=== PATIENT | female | born 1970 | race Caucasian/White ===

== ENCOUNTER 2018-05-02 20:05 | Emergency (ER) | payer BC ==
--- OUTSIDE RECORDS SUMMARY | 2018-05-02 20:10 | XMS REPORT | Continuity of Care Document ---
:1970 External Reference #:[id number] Author Name MarcoMel suero Care Team Providers Name Role Phone Bess Clark MD Primary Care Physician Unavailable Payers Type Date Identification Numbers Payment Provider Subscriber Effective: Policy Number: [id number] [facility] Jose Daniel Andre 2009 PayID: [id number] [address] [place] [address] Advance Directives Type Date Description Status Comment Other Directive 05/31/2015 Health Care Proxy Current and Verified Problems Date Description Provider Status Onset: 08/07/2010 Pure hypercholesterolemia Nicole Lyons M.D., FACP Active Onset: 03/31/2014 Obstructive sleep apnea syndrome Renuka Tolentino MD Active Onset: 03/31/2014 Peptic reflux disease Renuka Tolentino MD Active Onset: 03/31/2014 Insomnia Renuka Tolentino MD Active Onset: 09/28/2014 Restless legs Renuka Tolentino MD Active Onset: 09/28/2014 Deficiency anemias Renuka Tolentino MD Active Family History Date Family Member(s) Problem(s) Comments General No Current Problems Father Fibromyalgia Migraine, HTN, RLS, IFG Age 76 Mother "Lung Issues" Squamous Cell Cancer, Macular Degeneration Age 76 First Daughter Recovering from eating disorder Age 13 Siblings 3 2 Brothers - one with DM 1 Sister First Brother Alive And Well Second Brother Impaired fasting glucose Obese First Sister Alive And Well Social History Type Date Description Comments Sex Unknown Marital Status 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 She denies currently smoking Smoking Status Reviewed: 04/13/18 Patient has never smoked Patient smokes socially on and off, 1 cigarette every few months. She denies currently smoking Exercise Exercises regularly Type/Frequency Allergies, Adverse Reactions, Alerts Date Description Reaction Status Severity Comments 02/06/2010 Amoxicillin rash Active Moderate 03/10/2013 Cefdinir diarrhea Active 03/31/2014 Ampicillin Active Medications Medication Date Status Form Strength Qnty SIG Indications Ordering Provider Lorazepam 10/06 Active Tablets 0.5mg 15tab take 1/2-1 Z00.00 s tablet by Varn, N.P. mouth as needed for anxiety maximum daily dose=2 Fluticasone 08/27 Active Suspension 50mcg/Act 1bott 2 sprays R51 Luis le each nostril ALESHA Heaton in in the morning Iron 09/28 Active Tablets 325(65Fe) 60tab 2 tab by Renuka /2014 mg s mouth every MD Randa day Relpax 10/06 Active Tablets 20mg 12tab take 1 G43.909 s tablet by Varn, N.P. mouth for migraine headache, may repeat in 2 hours. Fish Oil 11/22 Active Capsules 300mg 1 po qd prn Nicole Eder Lyons, FACP Vit D Active Tablets 1000mg 1 po qd prn Unknown / Azithromycin 09/11 Hx Tablets 250mg 6tabs two tabs day one, one Varn, N.P. - daily till 09/21 Azithromycin 06/21 Hx Tablets 250mg 6tabs 2 tabs by J01.90 Luis mouth every ALESHA Heaton - day x1 day, 06/25 1 tab by /2016 mouth every day x 4 days Nystatin 05/01 Hx Suspension [id number] 16oz 4 B37.0 t/ML milliliters Varn, N.P. - four times a 05/15 day, swi and swallow for 14 days Flovent HFA 05/01 Hx Aerosol 110mcg/Ac 1unit 2 puffs R05 t s twice daily Varn, N.P. - 05/15 Fluconazole 05/01 Hx Tablets 150mg 2tabs one by mouth B37.0 may repeat Varn, N.P. - in 3 days as 12/30 needed /2016 Azithromycin 01/21 Hx Tablets 250mg 6tabs two tabs day one, one Varn, N.P. - daily till 01/31 Ativan 12/28 Hx Tablets 0.5mg 15tab 05/20 to 1 by R05 Clara /2016 s mouth every Varn, N.P. - 6 hours as 10/07 needed for anxiety Azithromycin 08/27 Hx Tablets 250mg 6tabs 2 tabs by J01.90 Luis mouth every [place]ina, [employer] - day x1 day, 09/01 1 tab by mouth every day x 4 days Ranitidine HCL 05/04 Hx Tablets 150mg 60tab take one K21.9 s tablet by Varn, N.P. - mouth twice 12/14 a day needed for reflux Ativan 05/04 Hx Tablets 0.5mg 30tab 05/20 to 1 by N94.3 Clara /2015 s mouth every Varn, N.P. - 6 hours as 12/14 needed for anxiety Azithromycin 02/14 Hx Tablets 250mg 6tabs 2 tabs by R0Hoda Kellogg mouth on day , - 1; 1 tab by Eder 02/24 mouth day on days 2-5 Symbicort 02/14 Hx Aerosol 80-4.5mcg 10.20 inhale two 5 Bess /Act 0gm puffs by Cotton, - mouth twice M.DAlber 05/04 a day /2014 Metaxalone 01/25 Hx Tablets 800mg 30tab take 1 724.5 s tablet at Varn, N.P. - bedtime as 02/08 needed for muscle spasms. Azithromycin 11/23 Hx Tablets 250mg 6tabs two tabs day 461.9 Clara one, one Varn, N.P. - daily till 12/03 Doxycycline 10/17 Hx Tablets 100mg 2tabs 2 tablets by Clara kristina mouth Varn, N.P. - 11/02 Azithromycin 08/19 Hx Tablets 250mg 6tabs 2 tabs by 461.8 Luis mouth every Florina, [employer] - day x1 day, 08/24 1 tab by mouth every day x 4 days Levofloxacin 03/21 Hx Tablets 500mg 7tabs 1 tablt po 466.0 qd Benavidez, - M.D. 03/30 Proair HFA 03/21 Hx Aerosol 108(90Bas QS 2 puffs by 466.0 e) mouth every Benavidez, - mcg/Act 64 hours as M.D. 03/30 needed Lorazepam 03/02 Hx Tablets 0.5mg 30tab takes 05/22 po 240.9 s daily Varn, N.P. - 10/17 Imipramine HCL 03/02 Hx Tablets 50mg one po daily 311 Varn, N.P. - 03/20 Azithromycin 07/28 Hx Tablets 250mg 6tabs two tabs day one, one Serena, - daily till M.D., FACP 08/10 Relpax 03/25 Hx Tablets 40mg 2tabs 1 by mouth 784.0 Nicole every day as Serena, - needed M.D., FACP 07/22 Fluticasone 03/25 Hx Suspension 50mcg/Act 1bott 1 spray each 784.0 Luis le nostril in [facility], [employer] - in the 08/26 Azithromycin 03/10 Hx Tablets 250mg 6tabs two tabs day 784.0 Joselo E. one, one Karina, - daily till M.D. 03/25 Cefdinir 03/03 Hx Capsules 300mg 20cap take one tab 382.9 Ashlie s twice daily Rafa - for 10 days tson, N.P. 03/10 Norgestimate/E 08/28 Hx Tablets 0.18/0.21 1tabs as dir 240.9 Nicole thinyl 5/0.25 Serena, Estradiol - mg-35 mcg M.D., FACP 09/17 Omeprazole 07/[address] 20mg 90cap 1 by mouth s every day as Varn, N.P. - needed 03/18 Azithromycin 03/04 Hx Tablets 250mg 6tabs two tabs day 461.9 one, one Varn, N.P. - daily till 03/14 Azithromycin 07/30 Hx Tablets 250mg 6tabs two tabs day 461.9 one, one Serena, - daily till M.D., FACP 08/04 Omeprazole 05/[address] 20mg 60cap 1 tablet bid 530.81 s as needed Serena, - for stomach M.D., FACP 07/30 Azithromycin 04/23 Hx Tablets 250mg 6tabs two tabs day 461.9 one, one Serena, - daily till M.D., FACP 05/15 Niferex 150 MG 03/19 Hx Tablets 90tab 1 po qd s Kingston Lyons M.D., [facility] 07/30 Centrum Silver 11/22 Hx Tablets 1 po qd Nicole Ultra Women Kingston Lyons M.D., FACP 05/15 Calcium 500 11/22 Hx Tablets 500mg 1 po qd Kingston Lyons M.D., FACP 03/11 Acidophilus 11/22 Hx Capsules 1 po qd prn Kingston Lyons M.D., FACP 03/18 Cephalexin 08/07 Hx Capsules 250mg 20cap take 1 four s times a day Kingston Lyons M.D., FACP 11/06 Fluticasone 05/21 Hx Suspension 50mcg/Act 1bott 1 spray each Nicole le nostril in Serena, - am Paul.Radha, FACP 07/23 Ferocon 04/19 Hx Capsules Nicole Kingston Lyons M.D., FACP 04/19 Ferrogels 04/19 Hx Capsules 460-60-0. 1 cap by Nicole Forte 01-1mg mouth every Serena, - day M.DAlber, FACP 08/07 Zithromax 02/06 Hx Z Pack 1unit use as Nicole Kingston Freitas M.D., FACP 02/11 Ativan 00/00 Hx Tablets 0.5mg 2tabs 1/4 tablet Unknown /0000 daily - 03/04 Pantoprazole 00/[address] 40mg 90tab 1 po qd Unknown Sodium /0000 s - 05/15 Omeprazole 00/[address] 20mg 90cap 1 po qd Unknown /0000 s - 07/30 Lorazepam 00/00 Hx Tablets 0.5mg 30tab take 1 Unknown /0000 s tablet as - needed for 03/02 every 8 hours Vitamin B 00/00 Hx Tablets 30tab 1 po qd Unknown Complex /0000 s - 07/22 Immunizations CPT Code Status Date Vaccine Reaction Lot # [id number] Given 03/10/2018 Influenza Virus Vaccine, Quadrivalent, Split, Preservative Free 09314 Given 03/26/2017 Influenza Virus Vaccine, No immediate [id number] Quadrivalent, Split, reaction...jh Preservative Free 09131 Given 03/06/2016 Influenza Virus Vaccine, [id number] Quadrivalent, Split Virus, [place] Use 92767 Given 05/04/2015 Influenza Virus Vaccine, [id number] Quadrivalent, Split, Preservative Free 41202 Given 03/02/2014 Influenza Virus Vaccine, [id number] Quadrivalent, Split, Preservative Free 02729 Given 10/06/2013 Tdap - [id number] Tetanus/Diptheria/Acellula r Pertussis 49114 Given 03/25/2013 Flu Vaccine Split Virus [id number] Preservative Free For Indiv 3Yr Older 34681 Given 03/08/2011 Influenza Virus 3Yrs & [id number] Over 71883 Given 04/19/2010 Influenza Virus 3Yrs & Over 87169 Given 02/20/2009 Influenza Virus 3Yrs & Over 33943 Given 05/23/2006 Influenza Virus 3Yrs & Over 43646 Given 05/23/2006 Influenza Virus 3Yrs & Over 80953 Given 05/02/2005 Tetanus And Diptheria (Td) For Adult Use Preservative Free Vital Signs Date Vital Result Comment 04/13/2018 8:29am Heart Rate 78 /min BP Systolic Sitting 102 mmHg BP Diastolic Sitting 76 mmHg Respiratory Rate 16 /min Body Temperature 97.2 F 03/19/2018 8:36am Heart Rate 84 /min BP Systolic Sitting 102 mmHg BP Diastolic Sitting 68 mmHg Respiratory Rate 18 /min Body Temperature 98.1 F 03/18/2018 1:46pm Height 63.25 inches 5'3.25" Weight 168.00 lb Heart Rate 71 /min BP Systolic 116 mmHg BP Diastolic 70 mmHg Body Temperature 98.7 F O2 % BldC Oximetry 97 % BMI (Body Mass Index) 29.5 kg/m2 10/06/2017 1:35pm Height 63.25 inches 5'3.25" Weight 163.00 lb Heart Rate 72 /min BP Systolic 110 mmHg BP Diastolic 68 mmHg Body Temperature 98.4 F O2 % BldC Oximetry 97 % BMI (Body Mass Index) 28.6 kg/m2 09/09/2017 9:34am Weight 174.00 lb Heart Rate 94 /min BP Systolic 100 mmHg BP Diastolic 64 mmHg Body Temperature 98.0 F O2 % BldC Oximetry 98 % 05/27/2017 2:14pm Height 63 inches 5'3" Weight 170.00 lb Heart Rate 68 /min BP Systolic Sitting 116 mmHg BP Diastolic Sitting 72 mmHg Respiratory Rate 14 /min O2 % BldC Oximetry 98 % BMI (Body Mass Index) 30.1 kg/m2 Neck Circumference in inches 15.25 03/26/2017 8:42am Weight 170.00 lb Heart Rate 78 /min BP Systolic 110 mmHg BP Diastolic 66 mmHg Body Temperature 98.0 F O2 % BldC Oximetry 97 % 12/30/2016 3:57pm Weight 173.50 lb Heart Rate 72 /min BP Systolic 100 mmHg BP Diastolic 64 mmHg Body Temperature 99.3 F O2 % BldC Oximetry 98 % 10/11/2016 8:06am Height 63 inches 5'3" Weight 160.00 lb Heart Rate 78 /min BP Systolic 99 mmHg BP Diastolic 62 mmHg Respiratory Rate 16 /min BMI (Body Mass Index) 28.3 kg/m2 06/21/2016 11:37am Weight 157.00 lb Heart Rate 92 /min BP Systolic 118 mmHg BP Diastolic 60 mmHg Body Temperature 99.7 F 3 advil 1 hour ago O2 % BldC Oximetry 98 % 06/18/2016 9:08am Weight 160.00 lb with shoes Heart Rate 90 /min BP Systolic 104 mmHg BP Diastolic 70 mmHg Body Temperature 98.1 F O2 % BldC Oximetry 98 % 05/01/2016 11:11am Weight 161.00 lb Heart Rate 68 /min BP Systolic Sitting 122 mmHg BP Diastolic Sitting 76 mmHg Respiratory Rate 15 /min Body Temperature 97.7 F O2 % BldC Oximetry 98 % 03/06/2016 8:46am Height 63 inches 5'3" Weight 160.00 lb Heart Rate 67 /min BP Systolic 112 mmHg BP Diastolic 82 mmHg Respiratory Rate 14 /min O2 % BldC Oximetry 97 % BMI (Body Mass Index) 28.3 kg/m2 12/29/2015 8:45am Weight 159.00 lb Heart Rate 82 /min BP Systolic Sitting 110 mmHg BP Diastolic Sitting 72 mmHg O2 % BldC Oximetry 97 % 12/15/2015 10:01am Weight 156.00 lb with shoes Heart Rate 82 /min BP Systolic Sitting 100 mmHg BP Diastolic Sitting 62 mmHg Body Temperature 97.9 F O2 % BldC Oximetry 98 % 08/28/2015 1:45pm Height 63 inches 5'3" Weight 159.00 lb Heart Rate 76 /min BP Systolic Sitting 112 mmHg BP Diastolic Sitting 60 mmHg Respiratory Rate 15 /min Body Temperature 98.6 F O2 % BldC Oximetry 98 % BMI (Body Mass Index) 28.2 kg/m2 05/04/2015 9:52am Height 63 inches 5'3" Weight 161.00 lb Heart Rate 73 /min BP Systolic Sitting 107 mmHg BP Diastolic Sitting 58 mmHg Body Temperature 98.3 F O2 % BldC Oximetry 97 % BMI (Body Mass Index) 28.5 kg/m2 02/14/2015 8:50am Weight 161.00 lb Heart Rate 89 /min BP Systolic Sitting 120 mmHg BP Diastolic Sitting 71 mmHg Body Temperature 97.9 F O2 % BldC Oximetry 95 % Peak Flow Meter 300,250 01/25/2015 10:21am Weight 162.50 lb Heart Rate 70 /min BP Systolic Sitting 97 mmHg BP Diastolic Sitting 64 mmHg Body Temperature 98.1 F 11/23/2014 2:22pm Weight 164.00 lb Heart Rate 73 /min BP Systolic Sitting 109 mmHg BP Diastolic Sitting 63 mmHg Body Temperature 97.4 F 11/04/2014 2:44pm Weight 164.75 lb Heart Rate 67 /min BP Systolic Sitting 105 mmHg BP Diastolic Sitting 71 mmHg Body Temperature 97.9 F 09/28/2014 8:38am Height 63 inches 5'3" Weight 160.00 lb Heart Rate 74 /min BP Systolic Sitting 110 mmHg BP Diastolic Sitting 72 mmHg O2 % BldC Oximetry 98 % BMI (Body Mass Index) 28.3 kg/m2 Neck Circumference in inches 15 08/19/2014 1:30pm Height 63 inches 5'3" Weight 161.00 lb Heart Rate 79 /min BP Systolic 96 mmHg BP Diastolic 65 mmHg Body Temperature 97.7 F O2 % BldC Oximetry 97 % BMI (Body Mass Index) 28.5 kg/m2 03/31/2014 9:12am Height 63 inches 5'3" Weight 160.00 lb Heart Rate 82 /min BP Systolic Sitting 106 mmHg BP Diastolic Sitting 64 mmHg Respiratory Rate 16 /min O2 % BldC Oximetry 98 % BMI (Body Mass Index) 28.3 kg/m2 03/21/2014 1:42pm Height 63 inches 5'3" Weight 162.50 lb Heart Rate 49 /min BP Systolic Sitting 100 mmHg BP Diastolic Sitting 68 mmHg Body Temperature 98.5 F BMI (Body Mass Index) 28.8 kg/m2 03/02/2014 9:05am Height 63 inches 5'3" Weight 162.00 lb Heart Rate 76 /min BP Systolic Sitting 120 mmHg BP Diastolic Sitting 60 mmHg BMI (Body Mass Index) 28.7 kg/m2 10/06/2013 9:25am Height 63 inches 5'3" Weight 159.50 lb Heart Rate 76 /min BP Systolic Sitting 110 mmHg BP Diastolic Sitting 68 mmHg BMI (Body Mass Index) 28.3 kg/m2 08/10/2013 11:48am Weight 160.50 lb Heart Rate 68 /min BP Systolic 120 mmHg BP Diastolic 76 mmHg Respiratory Rate 16 /min Body Temperature 98.4 F 07/22/2013 9:02am Weight 161.50 lb Heart Rate 80 /min BP Systolic 110 mmHg BP Diastolic 74 mmHg Respiratory Rate 16 /min Body Temperature 98.4 F 03/25/2013 11:51am Weight 157.00 lb Heart Rate 78 /min BP Systolic Sitting 122 mmHg BP Diastolic Sitting 76 mmHg 03/10/2013 1:53pm Height 63.5 inches 5'3.50" Weight 155.75 lb Heart Rate 76 /min BP Systolic Sitting 112 mmHg BP Diastolic Sitting 80 mmHg Body Temperature 98.5 F BMI (Body Mass Index) 27.2 kg/m2 03/03/2013 9:50am Weight 156.50 lb Heart Rate 82 /min BP Systolic Sitting 118 mmHg BP Diastolic Sitting 78 mmHg O2 % BldC Oximetry 97 % 08/28/2012 9:07am Height 63.25 inches 5'3.25" Weight 151.00 lb Heart Rate 84 /min BP Systolic Sitting 110 mmHg BP Diastolic Sitting 68 mmHg BMI (Body Mass Index) 26.5 kg/m2 07/23/2012 11:36am Height 62 inches 5'2" Weight 153.00 lb Heart Rate 76 /min BP Systolic Sitting 110 mmHg BP Diastolic Sitting 70 mmHg BMI (Body Mass Index) 28.0 kg/m2 03/04/2012 10:47am Height 62 inches 5'2" Weight 149.75 lb Heart Rate 64 /min BP Systolic Sitting 110 mmHg BP Diastolic Sitting 70 mmHg Body Temperature 98.4 F BMI (Body Mass Index) 27.4 kg/m2 07/31/2011 9:45am Height 62 inches 5'2" Weight 151.75 lb Heart Rate 72 /min BP Systolic Sitting 90 mmHg BP Diastolic Sitting 60 mmHg Body Temperature 97.5 F BMI (Body Mass Index) 27.8 kg/m2 05/15/2011 4:19pm Height 62 inches 5'2" Weight 155.00 lb Heart Rate 76 /min BP Systolic Sitting 122 mmHg BP Diastolic Sitting 78 mmHg BMI (Body Mass Index) 28.3 kg/m2 04/23/2011 1:49pm Height 62 inches 5'2" Weight 154.00 lb Heart Rate 72 /min BP Systolic Sitting 100 mmHg BP Diastolic Sitting 64 mmHg Body Temperature 98.7 F BMI (Body Mass Index) 28.2 kg/m2 03/11/2011 11:42am Height 62 inches 5'2" Weight 152.00 lb Heart Rate 68 /min BP Systolic Sitting 112 mmHg l BP Diastolic Sitting 74 mmHg l BMI (Body Mass Index) 27.8 kg/m2 11/22/2010 10:12am Height 62 inches 5'2" Weight 152.00 lb Heart Rate 64 /min BP Systolic Sitting 110 mmHg BP Diastolic Sitting 70 mmHg BMI (Body Mass Index) 27.8 kg/m2 11/06/2010 3:06pm Height 62 inches 5'2" Weight 151.00 lb Heart Rate 78 /min BP Systolic Sitting 98 mmHg BP Diastolic Sitting 74 mmHg BMI (Body Mass Index) 27.6 kg/m2 11/06/2010 3:01pm Height 62 inches 5'2" Weight 151.00 lb BMI (Body Mass Index) 27.6 kg/m2 08/07/2010 9:26am Weight 153.00 lb Heart Rate 72 /min BP Systolic 102 mmHg BP Diastolic 70 mmHg Body Temperature 99.0 F 04/19/2010 12:02pm Weight 152.50 lb Heart Rate 80 /min BP Systolic 110 mmHg BP Diastolic 80 mmHg 02/06/2010 10:06am Weight 151.12 lb Heart Rate 72 /min BP Systolic 110 mmHg BP Diastolic 70 mmHg Results Test Date Facility Test Result H/L Range Note Lipid Profile 10/03/2017 [facility] Triglycerides 76 mg/dL 1 (Trig/Chol/HDL) [address] [place] [address] [phone] Cholesterol 204 mg/dL 2 HDL Cholesterol 51.5 mg/dL 3 LDL Cholesterol 137 mg/dL 4 Comp Metabolic Panel 10/03/2017 [facility] Sodium 141 mmol/L N 139-[address] [place] [address] [phone] Potassium 3.9 mmol/L N 3.5-5.0 Chloride 107 mmol/L N 101-111 Co2 Carbon Dioxide 29 mmol/L N 22-32 Anion Gap 5 mmol/L N 2-11 Glucose 88 mg/dL N 70-100 Blood Urea Nitrogen 9 mg/dL N 6-24 Creatinine 0.68 mg/dL N 0.51-0.95 BUN/Creatinine Ratio 13.2 N 8-20 Calcium 9.3 mg/dL N 8.6-10.3 Total Protein 6.5 g/dL N 6.4-8.9 Albumin 4.3 g/dL N 3.2-5.2 Globulin 2.2 g/dL N 2-4 Albumin/Globulin Ratio 2.0 N 1-3 Total Bilirubin 0.60 mg/dL N 0.2-1.0 Alkaline Phosphatase 56 U/L N 34-104 Alt 15 U/L N 7-52 Ast 17 U/L N 13-39 Egfr Non- 92.3 >60 Egfr 118.8 >60 5 CBC Auto Diff 10/03/2017 [facility] White Blood 3.9 10^3/uL N 3.5-10.[address] [place] [address] [phone] Red Blood Count 3.98 10^6/uL Low 4.0-5.4 Hemoglobin 13.2 g/dL N 12.0-16.0 Hematocrit 38 % N 35-47 Mean Corpuscular Volume 95 fL N 80-97 Mean Corpuscular Hemoglobin 33 pg High 27-31 Mean Corpuscular HGB Conc 35 g/dL N 31-36 Red Cell Distribution Width 13 % N 10.5-15 Platelet Count 230 10^3/uL N 150-450 Mean Platelet Volume 6.8 um3 Low 7.4-10.4 Abs Neutrophils 2.2 10^3/uL N 1.5-7.7 Abs Lymphocytes 1.3 10^3/uL N 1.0-4.8 Abs Monocytes 0.3 10^3/uL N 0-0.8 Abs Eosinophils 0.1 10^3/uL N 0-0.6 Abs Basophils 0 10^3/uL N 0-0.2 Abs Nucleated RBC 0 10^3/uL Granulocyte % 56.2 % N 38-83 Lymphocyte % 32.7 % N 25-47 Monocyte % 7.7 % High 0-7 Eosinophil % 3.0 % N 0-6 Basophil % 0.4 % N 0-2 Nucleated Red Blood Cells % 0.1 Laboratory test 10/03/2017 [facility] Ferritin 45.7 ng/mL N 11 -[address] [place], [place] [id number] [phone] Laboratory test 10/03/2017 [facility] TSH (Thyroid 1.05 N 0.34 -5.[address] Stim Horm) mcIU/mL [place], [place] [id number] [phone] Free T4 (Free Thyroxine) 0.74 ng/dL N 0.61-1.12 Insulin Level 4.0 mcIU/mL N 2.0-16.0 Glucose Tolerance 10/03/2017 [facility] Glucose (SEE NOTE) [address] [place] [address] 2HR [phone] Laboratory test 06/05/2017 [facility] Cytology SEE RESULT [address] [employer] [place] [address] [phone] Laboratory test 03/26/2017 [facility] TSH (Thyroid 1.12 mcIU/mL N 0.34-[address] Stim Horm) .60 [place] [address] [phone] Thyroperoxidase AB 0.73 IU/mL N <9 Free T4 (Free Thyroxine) 0.77 ng/dL N 0.61-1.12 T3 Free 3.60 pg/mL N 2.5-3.9 Laboratory test 02/14/2017 [facility] Lyme Disease Negative N Negative [address] [place] [address] [phone] Laboratory test 12/30/2016 [facility] TSH (Thyroid 1.06 mcIU/mL N 0.34-5.[address] Stim [place]orm) [place] [address] [phone] CBC Auto Diff 12/30/2016 [facility] White Blood 5.6 10^3/uL N 3.5-10.[address] [place] [address] [phone] Red Blood Count 4.17 10^6/uL N 4.0-5.4 Hemoglobin 13.5 g/dL N 12.0-16.0 Hematocrit 40 % N 35-47 Mean Corpuscular Volume 96 fL N 80-97 Mean Corpuscular Hemoglobin 32 pg High 27-31 Mean Corpuscular HGB Conc 34 g/dL N 31-36 Red Cell Distribution Width 13 % N 10.5-15 Platelet Count 300 10^3/uL N 150-450 Mean Platelet Volume 7 um3 Low 7.4-10.4 Abs Neutrophils 3.3 10^3/uL N 1.5-7.7 Abs Lymphocytes 1.7 10^3/uL N 1.0-4.8 Abs Monocytes 0.4 10^3/uL N 0-0.8 Abs Eosinophils 0.1 10^3/uL N 0-0.6 Abs Basophils 0 10^3/uL N 0-0.2 Abs Nucleated RBC 0 10^3/uL N Granulocyte % 58.7 % N 38-83 Lymphocyte % 30.9 % N 25-47 Monocyte % 8.0 % N 1-9 Eosinophil % 1.9 % N 0-6 Basophil % 0.5 % N 0-2 Nucleated Red Blood Cells % 0 N Laboratory 12/30/2016 [facility] Lyme Disease Negative N Negative 9 test finding [address] [place] [address] [phone] Laboratory 11/26/2016 [facility] Thyroperoxidase AB 0.86 IU/mL N <[address] [place] [address] [phone] Thyroglobulin AB <1.8 IU/mL N <4.0 10 Lipid Profile 09/02/2016 [facility] Triglycerides 76 mg/dL N 11 (Trig/Chol/HDL) [address] [place] [address] [phone] Cholesterol 187 mg/dL N 12 HDL Cholesterol 54.5 mg/dL N 13 LDL Cholesterol 117 mg/dL N 14 Comp Metabolic Panel 09/02/2016 [facility] Sodium 134 mmol/L N 133-145 [address] [place] [address] [phone] Potassium 3.7 mmol/L N 3.5-5.0 Chloride 105 mmol/L N 101-111 Co2 Carbon Dioxide 26 mmol/L N 22-32 Anion Gap 3 mmol/L N 2-11 Glucose 96 mg/dL N 70-100 Blood Urea Nitrogen 13 mg/dL N 6-24 Creatinine 0.54 mg/dL N 0.51-0.95 BUN/Creatinine Ratio 24.1 High 8-20 Calcium 8.6 mg/dL N 8.6-10.3 Total Protein 6.3 g/dL Low 6.4-8.9 Albumin 4.0 g/dL N 3.2-5.2 Globulin 2.3 g/dL N 2-4 Albumin/Globulin Ratio 1.7 N 1-3 Total Bilirubin 0.60 mg/dL N 0.2-1.0 Alkaline Phosphatase 49 U/L N 34-104 Alt 16 U/L N 7-52 Ast 17 U/L N 13-39 Egfr Non- 121.0 N >60 Egfr 155.6 N >60 15 CBC Auto Diff 09/02/2016 [facility] White Blood 5.3 10^3/uL N 3.5-10.[address] [place] [address] [phone] Red Blood Count 4.11 10^6/uL N 4.0-5.4 Hemoglobin 13.1 g/dL N 12.0-16.0 Hematocrit 39 % N 35-47 Mean Corpuscular Volume 94 fL N 80-97 Mean Corpuscular Hemoglobin 32 pg High 27-31 Mean Corpuscular HGB Conc 34 g/dL N 31-36 Red Cell Distribution Width 13 % N 10.5-15 Platelet Count 236 10^3/uL N 150-450 Mean Platelet Volume 7 um3 Low 7.4-10.4 Abs Neutrophils 3.1 10^3/uL N 1.5-7.7 Abs Lymphocytes 1.6 10^3/uL N 1.0-4.8 Abs Monocytes 0.4 10^3/uL N 0-0.8 Abs Eosinophils 0.1 10^3/uL N 0-0.6 Abs Basophils 0 10^3/uL N 0-0.2 Abs Nucleated RBC 0 10^3/uL N Granulocyte % 59.3 % N 38-83 Lymphocyte % 29.7 % N 25-47 Monocyte % 8.0 % N 1-9 Eosinophil % 2.1 % N 0-6 Basophil % 0.9 % N 0-2 Nucleated Red Blood Cells % 0.1 N Laboratory test 09/02/2016 [facility] Ferritin 22.0 ng/mL N 11 -307 [address] [place] [address] [phone] TSH (Thyroid Stim Horm) 1.21 mcIU/mL N 0.34-5.60 17 Rapid Influenza 06/18/2016 [facility] Influenza A NEGATIVE N Negative 18 A & B Molecular [address] [place] [address] [phone] Influenza B Molecular NEGATIVE N Negative Laboratory test 06/18/2016 [facility] Culture Throat SEE RESULT [address] [place] [address] [phone] Laboratory test 06/18/2016 [facility] Influenza A & B SEE RESULT [address] [place] [address] [phone] Laboratory test 05/01/2016 [employer] [facility] A negative finding Strep CBC Auto Diff 12/15/2015 [facility] White Blood 5.1 10^3/uL N 3.5-[address] Count 0.8 [place] [address] [phone] Red Blood Count 4.22 10^6/uL N 4.0-5.4 Hemoglobin 13.6 g/dL N 12.0-16.0 Hematocrit 40 % N 35-47 Mean Corpuscular Volume 94 fL N 80-97 Mean Corpuscular Hemoglobin 32 pg High 27-31 Mean Corpuscular HGB Conc 34 g/dL N 31-36 Red Cell Distribution Width 13 % N 10.5-15 Platelet Count 279 10^3/uL N 150-450 Mean Platelet Volume 7 um3 Low 7.4-10.4 Abs Neutrophils 3.2 10^3/uL N 1.5-7.7 Abs Lymphocytes 1.4 10^3/uL N 1.0-4.8 Abs Monocytes 0.5 10^3/uL N 0-0.8 Abs Eosinophils 0.1 10^3/uL N 0-0.6 Abs Basophils 0 10^3/uL N 0-0.2 Abs Nucleated RBC 0.01 10^3/uL N Granulocyte % 62.2 % N 38-83 Lymphocyte % 26.5 % N 25-47 Monocyte % 9.3 % High 1-9 Eosinophil % 1.3 % N 0-6 Basophil % 0.7 % N 0-2 Nucleated Red Blood Cells % 0.1 N Laboratory test 12/15/2015 [facility] Ferritin 28.6 ng/mL N 11 -307 finding [facility] [place] [address] [phone] Iron & Iron Binding 12/15/2015 [facility] [facility] Iron 123 g/dL N 50 -212 Capacity [facility] [place] [address] [phone] Unsaturated Iron Binding 189 g/dL N Total Iron Binding Capacity 312 g/dL N 250-450 % Iron Saturation 39 % N 15-55 Laboratory 12/15/2015 [facility] TSH (Thyroid Stim 0.99 N 0.34 -5.60 test finding [address] [place] [address] Horm) mcIU/[place] [address] [phone] Lipid Profile 04/27/2015 [facility] Triglycerides 64 mg/dL N 21 (Trig/Chol/HDL [address] [place] [address] ) [place] [address] [phone] Cholesterol 218 mg/dL N 22 HDL Cholesterol 65.6 mg/dL N 23 LDL Cholesterol 140 mg/dL N 24 Comp Metabolic Panel 04/27/2015 [facility] Sodium 137 mmol/L N 133-145 [address] [place] [address] [phone] Potassium 4.1 mmol/L N 3.5-5.0 Chloride 104 mmol/L N 101-111 Co2 Carbon Dioxide 27 mmol/L N 22-32 Anion Gap 6 mmol/L N 2-11 Glucose 86 mg/dL N 70-100 Blood Urea Nitrogen 12 mg/dL N 6-24 Creatinine 0.64 mg/dL N 0.51-0.95 BUN/Creatinine Ratio 18.8 N 8-20 Calcium 9.0 mg/dL N 8.6-10.3 Total Protein 6.5 g/dL N 6.4-8.9 Albumin 4.4 g/dL N 3.2-5.2 Globulin 2.1 g/dL N 2-4 Albumin/Globulin Ratio 2.1 N 1-3 Total Bilirubin 0.50 mg/dL N 0.2-1.0 Alkaline Phosphatase 63 U/L N 34-104 Alt 29 U/L N 7-52 Ast 26 U/L N 13-39 Egfr Non- 100.3 N >60 Egfr 129.1 N >60 25 CBC Auto Diff 04/27/2015 [facility] White Blood 5.2 10^3/uL N 3.5-10.[address] [place] [address] [phone] Red Blood Count 4.16 10^6/uL N 4.0-5.4 Hemoglobin 13.8 g/dL N 12.0-16.0 Hematocrit 41 % N 35-47 Mean Corpuscular Volume 98 fL High 80-97 Mean Corpuscular Hemoglobin 33 pg High 27-31 Mean Corpuscular HGB Conc 34 g/dL N 31-36 Red Cell Distribution Width 13 % N 10.5-15 Platelet Count 287 10^3/uL N 150-450 Mean Platelet Volume 7 um3 Low 7.4-10.4 Abs Neutrophils 3.4 10^3/uL N 1.5-7.7 Abs Lymphocytes 1.3 10^3/uL N 1.0-4.8 Abs Monocytes 0.4 10^3/uL N 0-0.8 Abs Eosinophils 0.1 10^3/uL N 0-0.6 Abs Basophils 0 10^3/uL N 0-0.2 Abs Nucleated RBC 0 10^3/uL N Granulocyte % 65.3 % N 38-83 Lymphocyte % 24.9 % Low 25-47 Monocyte % 7.9 % N 1-9 Eosinophil % 1.5 % N 0-6 Basophil % 0.4 % N 0-2 Nucleated Red Blood Cells % 0 N Laboratory test 04/27/2015 [facility] Ferritin 26.9 ng/mL N 11 -307 [address] [place] [address] [phone] Order 02/14/2015 [employer] In-House peak flow 300, 250, 320 Laboratory test 12/09/2014 [facility] Lyme Disease Negative N Negative [address] [place] [address] [phone] Laboratory test 12/07/2014 [facility] Urine Negative N Negative [address] [place] [address] [phone] Laboratory test 11/04/2014 [facility] Lyme Disease Negative N Negative [address] [place] [address] [phone] Laboratory test 09/28/2014 [facility] Ferritin 22.7 ng/mL N 11 -[address] [place], [place] [id number] [phone] Iron & Iron 09/28/2014 [facility] Iron 117 g/dL N 50-[address] [place] [address] [phone] Unsaturated Iron Binding 194 g/dL N Total Iron Binding Capacity 311 g/dL N 250-450 % Iron Saturation 38 % N 15-55 CBC Auto 09/28/2014 [facility] White Blood 4.6 10^3/uL Low 4.8 -10.[address] [place] [address] [phone] Red Blood Count 4.05 10^6/uL N 4.0-5.4 Hemoglobin 13.5 g/dL N 12.0-16.0 Hematocrit 39 % N 35-47 Mean Corpuscular Volume 97 fL N 80-97 Mean Corpuscular Hemoglobin 33 pg High 27-31 Mean Corpuscular HGB Conc 35 g/dL N 31-36 Red Cell Distribution Width 13 % N 10.5-15 Platelet Count 235 10^3/uL N 150-450 Mean Platelet Volume 7 um3 Low 7.4-10.4 Abs Neutrophils 2.8 10^3/uL N 1.5-7.7 Abs Lymphocytes 1.3 10^3/uL N 1.0-4.8 Abs Monocytes 0.4 10^3/uL N 0-0.8 Abs Eosinophils 0.1 10^3/uL N 0-0.6 Abs Basophils 0 10^3/uL N 0-0.2 Abs Nucleated RBC 0 10^3/uL N Granulocyte % 60.6 % N 38-83 Lymphocyte % 28.3 % N 25-47 Monocyte % 8.6 % N 1-9 Eosinophil % 1.8 % N 0-6 Basophil % 0.7 % N 0-2 Nucleated Red Blood Cells % 0 N Celiac Panel 10/14/2013 [facility] Immunoglobulin A 194 mg/dL N 61 - [address] [place] [address] [phone] Tissue Transglutaminase IgA Ab <1.2 U/mL N 30 Celiac Interpretation See Comment N 31 Laboratory test 10/14/2013 [facility] TSH (Thyroid 1.22 IU/mL N 0.34-5.[address] [place] [address] Horm) [phone] CBC With Manual 10/14/2013 [facility] White Blood 5.4 N 4.8- 10.[address] Count 10^3/[place] [address] [phone] Red Blood Count 4.27 10^6/uL N 4.0-5.4 Hemoglobin 13.8 g/dL N 12.0-16.0 Hematocrit 41 % N 35-47 Mean Corpuscular Volume 95 fL N 80-97 Mean Corpuscular Hemoglobin 32 pg High 27-31 Mean Corpuscular HGB Conc 34 g/dL N 31-36 Red Cell Distribution Width 12 % N 10.5-15 Platelet Count 255 10^3/uL N 150-450 Mean Platelet Volume 7 um3 Low 7.4-10.4 Abs Neutrophils 3.8 10^3/uL N 1.5-7.7 Abs Lymphocytes 1.0 10^3/uL N 1.0-4.8 Abs Monocytes 0.4 10^3/uL N 0-0.8 Abs Eosinophils 0.1 10^3/uL N 0-0.6 Abs Basophils 0 10^3/uL N 0-0.2 Abs Nucleated RBC 0 10^3/uL N Neutrophil % 71 % N 38-83 Lymphocytes % 17 % Low 25-47 Monocytes % 10 % N 0-13 Reactive Lymph % 2 % N 0-6 RBC Morphology Normal N Normal Lipid Profile 09/30/2013 [facility] Triglycerides 47 mg/dL N 32, 33 (Trig/Chol/HDL) [address] [place] [address] [phone] Cholesterol 192 mg/dL N 34 HDL Cholesterol 57.2 mg/dL N 35 LDL Cholesterol 125 mg/dL N 36 Basic Metabolic Panel 09/30/2013 [facility] Sodium 137 mmol/L N 133-145 [address] [place] [address] [phone] Potassium 3.7 mmol/L N 3.7-5.6 Chloride 105 mmol/L N 101-111 Co2 Carbon Dioxide 27 mmol/L N 22-32 Anion Gap 5 mmol/L N 2-11 Glucose 83 mg/dL N 70-100 Blood Urea Nitrogen 14 mg/dL N 6-24 Creatinine 0.62 mg/dL N 0.51-0.95 BUN/Creatinine Ratio 22.6 High 8-20 Calcium 9.0 mg/dL N 8.6-10.3 Egfr Non- 104.6 N >60 Egfr 134.5 N >60 37 Lipid Profile 09/03/2012 [facility] Triglycerides 35 mg/dL Low 40-200 (Trig/Chol/HDL) [address] [place] [address] [phone] Cholesterol 227 mg/dL High Less than 200 HDL Cholesterol 64 mg/dL High 40-60 38 Cholesterol/HDL Ratio 3.6 Average 1-4.44 LDL Cholesterol 156.0 mg/dL High Less Than 100 39 Comp Metabolic Panel 09/03/2012 [facility] Sodium 137 mmol/L 133-145 [address] [place] [address] [phone] Potassium 4.3 mmol/L 3.5-5.0 Chloride 104 mmol/L 101-111 Co2 Carbon Dioxide 29.0 mmol/L 22-32 Anion Gap 4.0 mmol/L 2-11 Glucose 82 mg/dL 70-100 Blood Urea Nitrogen 11 mg/dL 6-24 Creatinine 0.70 mg/dL 0.50-1.40 BUN/Creatinine Ratio 15.7 8-20 Calcium 9.5 mg/dL 8.1-9.9 Total Protein 6.5 g/dL 6.2-8.1 Albumin 4.2 g/dL 3.6-5.4 Globulin 2.3 g/dL 2-4 Albumin/Globulin Ratio 1.8 1-3 Total Bilirubin 0.5 mg/dL 0.4-1.5 Alkaline Phosphatase 65 U/L 30-110 Alt 18 U/L 14-54 Ast 20 U/L 12-42 Egfr Non- 91.3 >60 Egfr 117.5 >60 40 Laboratory 09/03/2012 [facility] TSH (Thyroid 1.34 0.34-5.60 41 test finding [facility] [employer] Stimulating miu/[place] [address] Horm) [phone] Laboratory 02/14/2012 [facility] Prolactin 6.48 NG/ML 1.0- 25.0 test finding [facility] [employer] [place] [address] [phone] Laboratory 10/02/2011 [facility] Prolactin 5.25 NG/ML 1.0- 25.0 test finding [address] [employer] [place], [place] [address] [phone] CBC No Diff 10/02/2011 [facility] White Blood 4.1 CUMM Low 4.8 -10.8 [address] [employer] [place] [address] [phone] Red Cell Count 3.94 CUMM Low 4.2-5.4 Hemoglobin 13.3 g/dL 12.0-16.0 Hematocrit 38 % 35-47 Mean Corpuscular Volume 96 um3 79-97 Mean Corpuscular Hemoglob 34 pg High 27-31 Mean Corpuscular HGB Cone 35 g/dL 32-36 Redcell Distribution WDTH 12 % 10.5-15 Platelet Count 247 CUMM 150-450 Mean Platelet Volume 7.4 um3 7.4-10.4 H. Pylori 05/15/2011 [facility] H. Pylori Igg <0.75 index () 42 Evaluation [address] [employer] [place] [place] [address] [phone] H. Pylori Igm AB Negative Negative H. Pylori Iga AB Negative Negative Urinalysis 03/09/2011 [facility] Ua Color YELLOW Yellow [address] [place] [address] [phone] Appearance-Urine CLEAR Clear Specific Rittman-Ur 1.005 Low 1.010-1.030 Esterase-Urine NEGATIVE Negative Nitrite NEGATIVE Negative Deowbrzefqrl-Mg-CMD NEGATIVE Negative Protein-Urine NEGATIVE Negative PH-Urine 7.5 5-9 Blood-Urine NEGATIVE Negative Ketones-Urine NEGATIVE Negative Bilirubin-Ur NEGATIVE Negative Glucose-Urine NEGATIVE Negative CBC No Diff 03/09/2011 [facility] White Blood Count 5.6 CUMM 4.8-10.8 [address] [place] [address] [phone] Red Cell Count 4.07 CUMM Low 4.2-5.4 Hemoglobin 13.7 g/dL 12.0-16.0 Hematocrit 39 % 35-47 Mean Corpuscular Volume 96 um3 79-97 Mean Corpuscular Hemoglob 34 pg High 27-31 Mean Corpuscular HGB Cone 35 g/dL 32-36 Redcell Distribution WDTH 13 % 10.5-15 Platelet Count 308 CUMM 150-450 Mean Platelet Volume 6.7 um3 Low 7.4-10.4 Comp Metabolic Panel 03/09/2011 [facility] Sodium 140 mmol/L 135-145 [address] [place] [address] [phone] Potassium 3.3 mmol/L Low 3.5-5.0 Chloride 104 mmol/L 101-111 Co2 (Carbon Dioxide) 30.0 mmol/L 22-32 Anion Gap 6.0 mmol/L 2-11 43 Glucose 95 mg/dL 70-100 BUN 10 mg/dL 6-24 Creatinine 0.6 mg/dL 0.50-1.40 One Over Creatinine 1.66 BUN/Creatinine Ratio 16.7 8-20 Calcium 9.7 mg/dL 8.1-9.9 Total Protein 6.9 GM/DL 6.2-8.1 Albumin 4.4 GM/DL 3.6-5.4 Globulin 2.5 GM/DL 2-4 Albumin/Globulin Ratio 1.8 1-3 Bilirubin Total 0.6 mg/dL 0.4-1.5 44 Alkaline Phosphatase 72 U/L 30-110 Alt (SGPT) 17 U/L 14-54 Ast (Sgot) 22 U/L 12-42 eGFR Non- 110.2 > 60 eGFR 141.7 > 60 45 Laboratory test 03/09/2011 [facility] Troponin-I 0 NG/ML 0- 0.[address] [place] [address] [phone] CBC Auto Diff 03/09/2011 [facility] White Blood 5.6 CUMM 4.8- 10.[address] [place] [address] [phone] Red Cell Count 4.07 CUMM Low 4.2-5.4 Hemoglobin 13.7 g/dL 12.0-16.0 Hematocrit 39 % 35-47 Mean Corpuscular Volume 96 um3 79-97 Mean Corpuscular Hemoglob 34 pg High 27-31 Mean Corpuscular HGB Cone 35 g/dL 32-36 Redcell Distribution WDTH 13 % 10.5-15 Platelet Count 308 CUMM 150-450 Mean Platelet Volume 6.7 um3 Low 7.4-10.4 Gran % 53.8 % 38-83 Lymph % 35.8 % 25-47 Mononuclear % 7.6 % 1-9 Eosinophil % 2.3 % 0-6 Basophil % 0.5 % 0-2 Abs Lymphs 2.0 1.0-4.8 Abs Mononuclear 0.4 0-0.8 Absolute Neutrophil Count 2.9 1.5-7.7 Abs Eosinophils 0.1 0-0.6 Abs Basophils 0 0-0.2 Laboratory test finding 03/09/2011 [facility] Lipase 33 U/L 22-[address] [place] [address] [phone] CPK (Creatine Kinase) 51 U/L 0-170 CKMB 03/09/2011 [facility] CKMB In NG/ML 0.9 NG/ML 0.3-4.[address] [place] [address] [phone] CKMB 2 %MB 0-9 47 Laboratory test 03/09/2011 [facility] Myoglobin 11.20 Low 14.3 -65.[address] [facility] NG/ML [place], [place] [address] [phone] Laboratory test 11/22/2010 [facility] Cytology --------- [address] [place] [address] <SEE [phone] NOTE> CBC With Manual 11/07/2010 [facility] White Blood 4.2 CUMM Low 4.8-10.[address] [place] [address] [phone] Red Cell Count 4.02 CUMM Low 4.2-5.4 Hemoglobin 13.1 g/dL 12.0-16.0 Hematocrit 39 % 35-47 Mean Corpuscular Volume 96 um3 79-97 Mean Corpuscular Hemoglob 33 pg High 27-31 Mean Corpuscular HGB Cone 34 g/dL 32-36 Redcell Distribution WDTH 13 % 10.5-15 Platelet Count 238 CUMM 150-450 Mean Platelet Volume 7.6 um3 7.4-10.4 Polysegmented Neutrophil 45 % 38-83 Lymphocyte 39 % 25-47 Monocyte 14 % High 0-13 Eosinophil 1 % 0-6 Basophil 1 % 0-2 Absolute Neutrophil Count 1.8 RBC Morphology NORMAL Laboratory test 11/07/2010 [facility] Ferritin 29 NG/ML 11.0- 307 finding [address] [place] [address] [phone] Comp Metabolic 11/07/2010 [facility] Sodium 139 mmol/L 135- 145 Panel [address] [place] [address] [phone] Potassium 4.1 mmol/L 3.5-5.0 Chloride 107 mmol/L 101-111 Co2 (Carbon Dioxide) 27.0 mmol/L 22-32 Anion Gap 5.0 mmol/L 2-11 49 Glucose 89 mg/dL 70-100 BUN 18 mg/dL 6-24 Creatinine 0.63 mg/dL 0.50-1.40 One Over Creatinine 1.50 BUN/Creatinine Ratio 28.6 High 8-20 Calcium 9.2 mg/dL 8.1-9.9 Total Protein 6.8 GM/DL 6.2-8.1 Albumin 4.2 GM/DL 3.6-5.4 Globulin 2.6 GM/DL 2-4 Albumin/Globulin Ratio 1.6 1-3 Bilirubin Total 0.8 mg/dL 0.4-1.5 50 Alkaline Phosphatase 57 U/L 30-110 Alt (SGPT) 22 U/L 14-54 Ast (Sgot) 25 U/L 12-42 eGFR Non- 104.1 > 60 eGFR 133.9 > 60 51 Lipid Profile 11/07/2010 [facility] Triglyceride 46 mg/dL 40- 200 (Trig/Chol/HDL) [address] [place] [address] [phone] Cholesterol 200 mg/dL Less Than 200 52 High Density Lipoprotein 62 mg/dL High 40-60 53 Cholesterol/HDL Ratio 3.23 AVERAGE 1-4.44 Low Density Lipoprotein 129 mg/dL High Less Than 100 54 Laboratory test 11/07/2010 [facility] TSH 1.02 MIU/ML 0.34- 5.60 finding [address] [place] [address] [phone] 1 Desirable: <150 Borderline High: 150-199 High: 200-499 Very High: >500 2 Desirable: <200 Borderline High: 200-239 High: >239 3 Low: <40 Desirable: 40-60 High: >60 4 Desirable: <100 Near Optimal: 100-129 Borderline High: 130-159 High: 160-189 Very High: >189 5 Because ethnic data is not always readily available, this report includes an eGFR for both -Americans and non- Americans. The National Kidney Disease Education Program (NKDEP) does not endorse the use of the MDRD equation for patients that are not between the ages of 18 and 70, are , have extremes of body size, muscle mass, or nutritional status, or are non- or non-. According to the National Kidney Foundation, irrespective of diagnosis, the stage of the disease is based on the level of kidney function: Stage Description GFR(mL/min/1.73 m(2)) 1 Kidney damage with normal or decreased GFR 90 2 Kidney damage with mild decrease in GFR 60-89 3 Moderate decrease in GFR 30-59 4 Severe decrease in GFR 15-29 5 Kidney failure <15 (or dialysis) 6 GLU Fast 91 Col: 10/03/17 0755 GLU 2HR 101 Col: 10/03/17 0950 GTT Interp Col: 10/03/17 0755 Oral Glucose Tolerance Test (OGTT) Levels applicable except during . Sample drawn 2 hours after a 75-gram glucose drink. GLUCOSE LEVEL INDICATION Less than 140 mg/dL Normal glucose tolerance From 140 to 200 mg/dL Impaired glucose tolerance Over 200 mg/dL Diabetes (on more than one testing occasion) 7 SEE RESULT BELOW Name: MIRZASAUNDRA D : [address]: Israel Delgado MD Acct: [id number] Unit: [id number] AGE: 47 Location: THYROID Re06/05/17 SEX: F Status: REG REF SPEC: [id number] GLYNN: 06/05/[address]: Israel Delgado MD REQ: [id number] RECD: 06/05/17 STATUS: MICHAEL RIGGS DR: Clara Rocha MD _ ORDERED: FNA-IMG GUID BX, CYTO ADEQ-1ST P FINAL DIAGNOSIS Thyroid, left, Ultrasound guided fine needle aspiration: --Benign thyroid nodule- colloid/hyperplastic type ([place] Class II). The specimen demonstrates moderate to abundant watery colloid, an abundant amount of benign appearing follicular epithelium arranged in uniform sheets, medium sized follicles and only occasional small groups. No features of papillary carcinoma are seen. In this clinical setting the risk of malignancy is less than 3%. Clinical management of this thyroid nodule should be based on clinical and radiographic features as well as the above. THYROID LEFT - US GUIDED FINE NEEDLE ASPIRATION CLINICAL HISTORY Left thyroid nodule 0.9 x 0.7 x 0.7cm IMMEDIATE INTERPRETATION Pass 1-adequate CONTINUED ON NEXT PAGE * ML=Testing performed at Main Lab DEPARTMENT OF PATHOLOGY, [address] [place] [address] Chino Mendoza M.D. Director [facility] # [id number] RUN DATE: 06/05/17 [facility] LAB LIVE PAGE 2 Patient: SAUNDRA OLIVARES [id number] (Continued) GROSS DESCRIPTION (Continued) GROSS DESCRIPTION 1 - alcohol fixed slide(s) 1 - passes Signed (signature on file) Chino Mendoza MD 1002 END OF REPORT * ML=Testing performed at Main Lab DEPARTMENT OF PATHOLOGY, [address] [place] [address] Chino Mendoza M.D. Director [facility] # [id number] 8 Serologic response to B. burgdorferi infection is not detected, but cannot rule out early infection during which low or undetectable antibody levels to B. burgdorferi may be present. If clinically indicated, a new serum specimen should be submitted in 7-14 days. Test Performed by: [facility] [address] [place] [address] 9 Serologic response to B. burgdorferi infection is not detected, but cannot rule out early infection during which low or undetectable antibody levels to B. burgdorferi may be present. If clinically indicated, a new serum specimen should be submitted in 7-14 days. Test Performed by: [facility] [address] [place] [address] 10 ADDITIONAL INFORMATION The thyroglobulin antibody testing method is an immunoenzymatic assay manufactured by [employer]. and performed on the [employer] DXI 800. Values obtained from different assay methods or kits may be different and cannot be used interchangeably. The results cannot be interpreted as absolute evidence for the presence or absence of malignant disease. Test Performed by: [facility] [address] [place] [address] 11 Desirable <150 Borderline high 150-199 High 200-499 Very High >500 12 Desirable <200 Borderline high 200-239 High >239 13 Low <40 Desirable: 40-60 High: >60 14 Desirable: <100 mg/dL Near Optimal: 100-129 mg/dL Borderline High: 130-159 mg/dL High: 160-189 mg/dL Very High: >189 mg/dL 15 Because ethnic data is not always readily available, this report includes an eGFR for both -Americans and non- Americans. The National Kidney Disease Education Program (NKDEP) does not endorse the use of the MDRD equation for patients that are not between the ages of 18 and 70, are , have extremes of body size, muscle mass, or nutritional status, or are non- or non-. According to the National Kidney Foundation, irrespective of diagnosis, the stage of the disease is based on the level of kidney function: Stage Description GFR(mL/min/1.73 m(2)) 1 Kidney damage with normal or decreased GFR 90 2 Kidney damage with mild decrease in GFR 60-89 3 Moderate decrease in GFR 30-59 4 Severe decrease in GFR 15-29 5 Kidney failure <15 (or dialysis) 16 FASTING 10 HOUR 17 FASTING 10 HOUR 18 Boilermaker'S Assistant: [id number] Sarah Mendosa 19 SEE RESULT BELOW Name: SAUNDRA OLIVARES Adam : [address]: Luis Heaton NP Acct: [id number] Unit: [id number] AGE: 46 Location: [facility] Re06/18/16 SEX: F Status: REG REF SPEC: [id number] GLYNN: 06/18/[address]: Luis Heaton NP REQ: [id number] RECD: 06/18/16 STATUS: COMP _ SOURCE: THROAT SPDESC: ORDERED: Throat Culture COMMENTS: [id number] Procedure Result Reported Site Throat Culture Final 06/20/16- 1032 ML Organism 1 NORMAL KARSON Quantity 3+ * ML - [facility] ([facility]) . END OF REPORT * ML=Testing performed at Main Lab DEPARTMENT OF PATHOLOGY, [address] [place] [address] Chino Mendoza M.D. Director [facility] # [id number] 20 SEE RESULT BELOW Name: SAUNDRA OLIVARES : [address]: Luis Heaton NP Acct: [id number] Unit: [id number] AGE: 46 Location: [facility] Re06/18/16 SEX: F Status: REG REF SPEC: [id number] GLYNN: 06/18/16 WARD JALLOH: Luis Heaton NP REQ: [id number] RECD: 06/18/16 STATUS: COMP _ SOURCE: [facility]: ORDERED: Flu A B Request COMMENTS: [id number] Procedure Result Reported Site Rapid Influenza A B Request Final 06/18/162121 ML Specimen received for Influenza A/B Molecular testing * ML - MAIN LAB ([facility]) . END OF REPORT * ML=Testing performed at Main Lab DEPARTMENT OF PATHOLOGY, [address] [place] [address] Chino Mendoza M.D. Director [facility] # [id number] 21 Desirable <150 Borderline high 150-199 High 200-499 Very High >500 22 Desirable <200 Borderline high 200-239 High >239 23 Low <40 Desirable: 40-60 High: >60 24 Desirable: <100 mg/dL Near Optimal: 100-129 mg/dL Borderline High: 130-159 mg/dL High: 160-189 mg/dL Very High: >189 mg/dL 25 Because ethnic data is not always readily available, this report includes an eGFR for both -Americans and non- Americans. The National Kidney Disease Education Program (NKDEP) does not endorse the use of the MDRD equation for patients that are not between the ages of 18 and 70, are , have extremes of body size, muscle mass, or nutritional status, or are non- or non-. According to the National Kidney Foundation, irrespective of diagnosis, the stage of the disease is based on the level of kidney function: Stage Description GFR(mL/min/1.73 m(2)) 1 Kidney damage with normal or decreased GFR 90 2 Kidney damage with mild decrease in GFR 60-89 3 Moderate decrease in GFR 30-59 4 Severe decrease in GFR 15-29 5 Kidney failure <15 (or dialysis) 26 FASTING 27 Serologic response to B. burgdorferi infection is not detected, but cannot rule out early infection during which low or undetectable antibody levels to B. burgdorferi may be present. If clinically indicated, a new serum specimen should be submitted in 7-14 days. Test Performed by: [place] [address] [employer] Steward/Stewardess: Dominguez Woodson II, M.D., Ph.D. 28 If is still suspected, please repeat test after 48 to 72 hours. This test detects intact HCG only and is indicated for the early detection of . 29 Serologic response to B. burgdorferi infection is not detected, but cannot rule out early infection during which low or undetectable antibody levels to B. burgdorferi may be present. If clinically indicated, a new serum specimen should be submitted in 7-14 days. Test Performed by: [place] [address] [employer] Steward/Stewardess: Dominguez Woodson II, M.D., Ph.D. 30 -- REFERENCE VALUE -- <4.0 (Negative) Test Performed by: [place] [address] [employer] Steward/Stewardess: Herman León III, M.D. 31 Negative serology. Celiac disease unlikely. However, approximately 10% of patients with celiac disease are seronegative. Also, patients who are already adhering to a gluten-free diet may be seronegative. If celiac disease is highly clinically suspected, consider HLA-DQ typing. Test Performed by: [facility] [address] [address] Wine Steward/Stewardess: Herman León III, M.D. 32 PT IS FASTING 33 Desirable <150 Borderline high 150-199 High 200-499 Very High >500 34 Desirable <200 Borderline high 200-239 High >239 35 Low <40 Desirable: 40-60 High: >60 36 Desirable <100 Near Optimal 100-129 Borderline high 130-159 High 160-189 Very High >189 37 Because ethnic data is not always readily available, this report includes an eGFR for both -Americans and non- Americans. The National Kidney Disease Education Program (NKDEP) does not endorse the use of the MDRD equation for patients that are not between the ages of 18 and 70, are , have extremes of body size, muscle mass, or nutritional status, or are non- or non-. According to the National Kidney Foundation, irrespective of diagnosis, the stage of the disease is based on the level of kidney function: Stage Description GFR(mL/min/1.73 m(2)) 1 Kidney damage with normal or decreased GFR 90 2 Kidney damage with mild decrease in GFR 60-89 3 Moderate decrease in GFR 30-59 4 Severe decrease in GFR 15-29 5 Kidney failure <15 (or dialysis) 38 HDL Interpretation: Undesirable: High Risk: Less than 40 MG/DL Desirable: Low Risk: Greater than 60 MG/DL 39 LDL Interpretation: Low Risk Optimal Level: LDL Less than 100 MG/DL Near or Above Optimal: LDL 100-129 MG/DL Borderline High Risk: LDL 130-159 MG/DL High Risk: LDL 160-189 MG/DL Very High Risk: LDL Greater than 189 MG/DL 40 Because ethnic data is not always readily available, this report includes an eGFR for both -Americans and non- Americans. The National Kidney Disease Education Program (NKDEP) does not endorse the use of the MDRD equation for patients that are not between the ages of 18 and 70, are , have extremes of body size, muscle mass, or nutritional status, or are non- or non-. According to the National Kidney Foundation, irrespective of diagnosis, the stage of the disease is based on the level of kidney function: Stage Description GFR(mL/min/1.73 m(2)) 1 Kidney damage with normal or decreased GFR 90 2 Kidney damage with mild decrease in GFR 60-89 3 Moderate decrease in GFR 30-59 4 Severe decrease in GFR 15-29 5 Kidney failure <15 (or dialysis) 41 FASTING 12 HOUR 42 -- REFERENCE VALUE -- <0.75 (Negative) 0.75-0.99 (Equivocal) >=1.00 (Positive) Test Performed by: [facility] Dpt of Lab Med and Pathology [address] [place], [place] [id number] Wine Steward/Stewardess: Herman León III, M.D. 43 Anion gap measurement may be of limited value in the presence of any alkalosis, especially in a combined acid base disorder. . 44 A metabolite of Naproxen, O-desmethylnaproxen, has been shown to interfere with the Jendrassik-Rivanna method for measuring total bilirubin. Samples from patients who have taken Naproxen have shown spurious elevation in total bilirubin levels. 45 Because ethnic data is not always readily available, this report includes an eGFR for both -Americans and non- Americans. The National Kidney Disease Education Program (NKDEP) does not endorse the use of the MDRD equation for patients that are not between the ages of 18 and 70, are , have extremes of body size, muscle mass, or nutritional status, or are non- or non-. According to the National Kidney Foundation, irrespective of diagnosis, the stage of the disease is based on the level of kidney function: Stage Description GFR(mL/min/1.73 m(2)) 1 Kidney damage with normal or decreased GFR 90 2 Kidney damage with mild decrease in GFR 60-89 3 Moderate decrease in GFR 30-59 4 Severe decrease in GFR 15-29 5 Kidney failure <15 (or dialysis) 46 New Reference Range and Interpretation effective 02/19/2002 TnI (ng/ml) INTERPRETATION Less Than 0.06 ng/mL NOT SUPPORTIVE OF DIAGNOSIS OF NC 0.06 - 0.50 ng/ml INDETERMINATE: SUGGEST SERIAL STUDIES IF CLINICALLY INDICATED. Greater than 0.5 ng/mL CONSISTENT WITH DIAGNOSIS OF NC . 47 INTERPRETATION %CK-MB < 5% NOT SUPPORTIVE OF DIAGNOSIS OF NC 5 - <10% INDETERMINATE; SUGGEST SERIAL STUDIES IF CLINICALLY INDICATED 10% OR > CONSISTENT WITH DIAGNOSIS OF NC . 48 ---- RUN DATE: 11/23/10 [facility] NMI LIVE PAGE 1 RUN TIME: 1222 Specimen Inquiry RUN USER: INTERFACE -- Name: MIRZASAUNDRA D Status: REG REF Re11/22/10 Age/Sex: 40/F Unit#: [id number] Location: [facility] : 68 -- Specimen: [id number] SOUT Spec Date: 11/22/[address]: Nicole Lyons MD Spec Type: CYTOLOGY Received: 11/23/10 Copies to: SOURCE ECTOCERVICAL/ENDOCERVICAL Thin Prep with Reflex HPV Test PATIENT INFORMATION ACTUAL COLLECTION DATE: 11/22/10 ? No POST MENOPAUSAL? No HYSTERECTOMY? No PREVIOUS ABNORMAL PAP SMEARS No LAST MENSTRUAL PERIOD: 11/11/10 ADEQUACY OF SPECIMEN Satisfactory for evaluation * Transformation zone component identified * DIAGNOSIS NEGATIVE FOR INTRAEPITHELIAL LESION OR MALIGNANCY * This Pap test was evaluated with the assistance of the ThinPrep Pap Test Imaging System. The Pap Smear is a screening test designed to aid in the detection of premalign ant and malignant conditions of the uterine cervix. It is not a diagnostic procedure a nd should not be used as the sole means of detecting cervical cancer. Both false- positiv e and false-negative reports do occur. Depending on your risk status, a Pap smear jeffrey uld be obtained and evaluated every one to three years. Final Interpretation electronically signed by: Adam BIGGS([facility]) 11/23/10 122 1 -- -- DEPARTMENT OF PATHOLOGY, [address] [place] [address] [facility] Permit #[id number] Chino Mendoza M.D. Director Flaca Perez M.D. Post Office Clerk Dir choco -- 49 Anion gap measurement may be of limited value in the presence of any alkalosis, especially in a combined acid base disorder. . 50 A metabolite of Naproxen, O-desmethylnaproxen, has been shown to interfere with the Jendrassik-Crow method for measuring total bilirubin. Samples from patients who have taken Naproxen have shown spurious elevation in total bilirubin levels. 51 Because ethnic data is not always readily available, this report includes an eGFR for both -Americans and non- Americans. The National Kidney Disease Education Program (NKDEP) does not endorse the use of the MDRD equation for patients that are not between the ages of 18 and 70, are , have extremes of body size, muscle mass, or nutritional status, or are non- or non-. According to the National Kidney Foundation, irrespective of diagnosis, the stage of the disease is based on the level of kidney function: Stage Description GFR(mL/min/1.73 m(2)) 1 Kidney damage with normal or decreased GFR 90 2 Kidney damage with mild decrease in GFR 60-89 3 Moderate decrease in GFR 30-59 4 Severe decrease in GFR 15-29 5 Kidney failure <15 (or dialysis) 52 CHOLESTEROL INTERPRETATION: Desirable: Less than 200 MG/DL Borderline-High Risk: 200-239 MG/DL High-Risk: 240 MG/DL and over 53 HDL INTERPRETATION: Undesirable: High Risk: Less than 40 MG/DL Desirable: Low Risk: Greater than 60 MG/DL 54 LDL INTERPRETATION: Low Risk Optimal Level: LDL Less than 100 MG/DL Near or Above Optimal: LDL 100-129 MG/DL Borderline High Risk: LDL 130-159 MG/DL High Risk: LDL 160-189 MG/DL Very High Risk: LDL Greater than 189 MG/DL Procedures Date Code Description Status 11/03/2017 [id number] Mammogram Completed 11/01/2016 [id number] Mammogram Completed 07/13/2015 [id number] Mammogram Completed 04/13/2014 [id number] Mammogram Completed 02/14/2012 [id number] Mammogram Completed 11/30/2010 [id number] Mammogram Completed 2009 63967 EKG Tracing & Interpretation Completed 04/06/2009 15169 EKG Tracing & Interpretation Completed 09/18/2007 97306 EKG Tracing & Interpretation Completed 09/18/2007 27981 EKG Tracing & Interpretation Completed 05/16/2005 [id number] Mammogram Completed Encounters Type Date Location Provider Dx Diagnosis Office Visit 03/19/2018 Surgical Phylicia Moreno MD R21 Rash and other 8:30a [facility] nonspecific skin eruption Office Visit 03/18/2018 [facility] Internal Clara Gan, R21 Rash and other 1:40p Medicine - N.P. nonspecific skin [place] eruption Office Visit 10/06/2017 [facility] Internal Clara Gan, Z00.00 Encntr for general 1:40p Medicine - N.P. adult medical exam [place] w/o abnormal findings Z12.31 Encntr screen mammogram for malignant neoplasm of breast E78.00 Pure hypercholesterolemia, unspecified K21.9 Gastro-esophageal reflux disease without esophagitis G47.33 Obstructive sleep apnea (adult) (pediatric) Office Visit 09/09/2017 [facility] Internal Clara Gan, R51 Headache 10:00a Medicine - N.P. [place] Office Visit 05/27/2017 [facility] G47.33 Obstructive sleep 1:45p [facility] Randa apnea (adult) [facility] (pediatric) Office Visit 03/26/2017 [facility] Philly Gan, Z23 Encounter for 8:40a Medicine - N.P. immunization [place] R53.83 Other fatigue R63.5 Abnormal weight gain H61.23 Impacted cerumen, bilateral Office Visit 12/30/2016 4:00p [facility] Internal Clara Gan, E04.2 Nontoxic Medicine - N.P. multinodular [place] goiter M72.2 Plantar fascial fibromatosis Office Visit 10/11/2016 8:00a Orthopedic Deondre Alvarado, G56.32 Lesion of radial Services Of [facility] chandler, left C.M.A. upper limb Office Visit 10/03/2016 10:00a [facility] Philly Gan, Z00.01 Encounter for Medicine - N.P. general adult [place] medical exam w abnormal findings Z12.31 Encntr screen mammogram for malignant neoplasm of breast E78.00 Pure hypercholesterolemia, unspecified G25.81 Restless legs syndrome G47.33 Obstructive sleep apnea (adult) (pediatric) E04.2 Nontoxic multinodular goiter M25.532 Pain in left wrist Office Visit 06/21/2016 11:40a [facility] Internal Luis Heaton NP J01.90 Acute sinusitis, Medicine - unspecified [place] Office Visit 06/18/2016 9:00a [facility] Internal Luis Heaton NP J02.9 Acute Medicine - pharyngitis, [place] unspecified Office Visit 05/01/2016 11:20a [facility] Internal Clara Gan B37.0 Candidal Medicine - N.P. stomatitis [place] R05 Cough J02.9 Acute pharyngitis, unspecified Office Visit 03/06/2016 8:30a [facility] G47.33 Obstructive sleep [facility]anda apnea (adult) [facility] (pediatric) Z23 Encounter for immunization Office Visit 12/29/2015 8:40a [facility] Internal Clara Gan, R53.83 Other fatigue Medicine - N.P. [place] R05 Cough Office Visit 12/15/2015 10:00a [facility] Internal Clara Gan, R53.83 Other fatigue Medicine - N.P. [place] R05 Cough Z87.898 Personal history of other specified conditions Office Visit 08/28/2015 1:40p [facility] Internal Luis Heaton NP J01.90 Acute sinusitis, Medicine - unspecified [place] Office Visit 05/04/2015 10:00a [facility] Internal Clara Gan, Z00.01 Encounter for Medicine - N.P. general adult [place] medical exam w abnormal findings Z12.39 Encounter for oth screening for malignant neoplasm of breast G47.33 Obstructive sleep apnea (adult) (pediatric) G25.81 Restless legs syndrome K21.9 Gastro-esophageal reflux disease without esophagitis E78.0 Pure hypercholesterolemia Z23 Encounter for immunization N94.3 Premenstrual tension syndrome Office Visit 02/14/2015 8:40a [facility] Internal Bess R05 Cough Medicine Kingston Clark M.D. [place] Office Visit 01/25/2015 10:20a [facility] Internal Clara Gan, 724.5 Backache Unspec Medicine - N.P. [place] 724.2 Lumbago 724.8 Back Symptoms Other Office Visit 11/23/2014 2:40p [facility] Internal Clara Malik, 461.9 Sinusitis Acute Medicine - N.P. Unspec [place] 240.9 Goiter Unspec 625.4 Premenstrual Tension Syndromes 461.1 Sinusitis Acute Frontal Office Visit 11/04/2014 2:40p [facility] Internal Clara Gan, 780.79 Malaise And Medicine - N.P. Fatigue Other [place] 386.11 Vertigo Benign Paroxysmal Position E906.4 Bite Nonvenomous Arthropod Office Visit 09/28/2014 8:30a [facility] 327.23 Obstructive Sleep [facility] Apnea Adult & Advertising Representative Pediatric 333.94 Restless Leg Syndrome 780.52 Insomnia Unspecified 281.9 Anemia Deficiency Unspec Office Visit 08/19/2014 1:30p [facility] Internal Luis Heaton, 461.8 Sinusitis Acute Medicine - PARI M[employer]ICKET CASHIER Other [place] Office Visit 03/31/2014 9:00a [facility] 327.23 Obstructive Sleep [facility] Apnea Adult & Advertising Representative Pediatric 530.11 Esophagitis Reflux 780.52 Insomnia Unspecified Office Visit 03/21/2014 1:20p [facility] Internal Jelani Benavidez, 466.0 Bronchitis Acute Medicine - M.DAlber [place] Office Visit 03/02/2014 9:00a [facility] Internal Clara aGn, 240.9 Goiter Unspec Medicine - N.P. [place] 476.0 Laryngitis Chronic 311 Depressive Disorder Not Elsewhere Spec 719.46 Pain Joint Lower Leg 727.3 Bursitis Other V04.81 Need For Prophylactic Vaccination & Inoculation/Influenza Office Visit 12/30/2013 1:14p Sleep Disorder Jean BAILEY 327.23 Obstructive Sleep Center Eder Caballero Apnea Adult & Pediatric Office Visit 11/12/2013 11:10a Sleep Disorder Jean BAILEY 327.23 Obstructive Sleep Center Eder Caballero Apnea Adult & Pediatric 300.02 Anxiety Disorder Generalized Office Visit 10/06/2013 9:20a [facility] Internal Clara Gan, V70.0 Examination Medicine - N.P. General Medical [place] Routine AT Health Care Facility 272.4 Hyperlipidemia Other Unspec 285.8 Anemia Other Spec 240.9 Goiter Unspec 787.3 Flatulence Eructation & Gas Pain 327.23 Obstructive Sleep Apnea Adult & Pediatric 346.90 Migraine Unspec W/O Intractable W/O Status Migrainosus V06.1 Wxycnvdxsn-Lwcqcqk-Yqiyfpof Combined (DTaP) Office Visit 08/10/2013 11:40a [facility] Internal Nicole Lyons, 240.9 Goiter Unspec Medicine - Eder, FACP [place] 784.0 Headache 565.0 Anal Fissure Office Visit 07/22/2013 9:00a [facility] Internal Medicine Nicole Lyons M.D., 784.0 Headache - [place] FACP 327.23 Obstructive Sleep Apnea Adult & Pediatric 780.52 Insomnia Unspecified 240.9 Goiter Unspec Office Visit 03/25/2013 11:40a [facility] Internal Medicine Nicole Lyons M.D., 784.0 Headache - [place] FACP V04.81 Need For Prophylactic Vaccination & Inoculation/Influenza Office Visit 03/10/2013 2:00p [facility] Internal Joselo Capps 784.0 Headache Judy Collins M.D. [place] Office Visit 03/03/2013 10:00a [facility] Internal Ashlie 382.9 Otitis Media Medicine - [place], Unspec [place] N.P. 847.0 Sprains & Strains Neck 380.4 Impacted Cerumen Office Visit 08/28/2012 9:00a [facility] Internal Nicole Lyons, V70.0 Examination Medicine - Eder, FACP General Medical [place] Routine AT Health Care Facility V76.10 Screening For Malignant Neoplasm Breast 530.81 Esophageal Reflux 300.00 Anxiety State Unspec 272.0 Hypercholesterolemia Pure 723.1 Cervicalgia Office Visit 07/23/2012 11:20a [facility] Internal Nicole Lyons, 530.81 Esophageal Reflux Medicine - Eder, FACP [place] Office Visit 03/04/2012 10:40a [facility] Internal Clara Gan, 461.9 Sinusitis Acute Medicine - N.P. Unspec [place] Office Visit 07/31/2011 9:40a [facility] Internal Nicole Lyons, 782.0 Skin Sensation Medicine - Eder, FACP Disturbance [place] 461.9 Sinusitis Acute Unspec 626.8 Menstruation & Other Abnormal Bleeding Disorders Other Office Visit 05/15/2011 DO Not Use Nicole Serena, 530.81 Esophageal 4:20p Tran-Behzad Miller.Adam., FACP Reflux Office Visit 04/23/2011 DO Not Use Clara Gan, 461.9 Sinusitis Acute 1:40p Advertising Representative-[place] N.P. Unspec Office Visit 03/11/2011 DO Not Use Nicole Serena, 530.81 Esophageal 11:20a Advertising Representative-Behzad Miller.Adam., FACP Reflux Office Visit 11/22/2010 DO Not Use Nicole Serena, 780.79 Malaise And 10:20a Advertising Representative-Behzad Miller.Adam., FACP Fatigue Other V72.31 Routine Community Outreach Director Examination V70.0 Examination General Medical Routine AT [facility] Facility Office Visit 11/06/2010 3:00p DO Not Use Nicole Serena, 696.3 Pityriasis Rosea Pankaj Gaines, FACP 285.9 Anemia Unspec 272.4 Hyperlipidemia Other Unspec Office Visit 08/07/2010 9:15a DO Not Use Nicole Serena, 685.1 Pilonidal Cyst Pankaj Gaines, FACP W/O Abscess 727.42 Ganglion Tendon Sheath 719.46 Pain Joint Lower Leg Office Visit 04/19/2010 12:00p DO Not Use Nicole Serena, 285.9 Anemia Unspec Pankaj Gaines, FACP 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 Unspec Office Visit 2009 DO Not Use Nicole Serena, 786.50 Pain Chest Unspec 10:00a Pankaj Gaines, FACP Office Visit 04/06/2009 DO Not Use Nicole Serena, V72.31 Routine Community Outreach Director 10:00a Pankaj Gaines, FACP Examination 786.50 Pain Chest Unspec 272.0 Hypercholesterolemia Pure Office Visit 02/02/2008 9:00a DO Not Use Nicole Serena, V70.0 Examination Advertising Representative-Behzad Gaines, FACP General Medical Routine AT Health Care Facility Office Visit 12/09/2007 4:00p DO Not Use Nicole Serena, 466.0 Bronchitis Acute Pankaj Gaines, FACP 461.9 Sinusitis Acute Unspec Office Visit 11/27/2007 11:00a DO Not Use Nicole Serena, 462 Pharyngitis Acute Pankaj Gaines, FACP Office Visit 09/18/2007 9:15a DO Not Use Nicole Serena, V70.0 Examination Pankaj Gaines, FACP General Medical Routine AT [facility] Facility 272.0 Hypercholesterolemia Pure Office Visit 08/06/2007 11:15a DO Not Use Nicole Serena, 461.9 Sinusitis Acute Pankaj Gaines, FACP Unspec 723.1 Cervicalgia Office Visit 04/02/2007 DO Not Use Clara Varn, 461.9 Sinusitis Acute 11:00a Advertising Representative-[place] N.P. Unspec Office Visit 11/20/2006 DO Not Use Nicole Serena, 611.71 Mastodynia 3:30p Tran-Behzad Miller.Radha, FACP 461.9 Sinusitis Acute Unspec Office Visit 08/14/2006 DO Not Use Clara Varn, 461.9 Sinusitis Acute 11:45a Advertising Representative-[place] N.P. Unspec Office Visit 05/23/2006 DO Not Use Nicole Serena, V70.0 Examination 11:30a Pankaj Gaines, FACP General Medical Routine AT Health Care Facility V04.81 Need For Prophylactic Vaccination & Inoculation/Influenza Plan of Treatment Future Appointment(s):05/11/2018 8:30 am - Phylicia Moreno MD at [facility]06/12/2018 10:30 am - Renuka Tolentino MD at [facility]04/13/2018 - Phylicia Moreno, MDR21 Rash and other nonspecific skin eruptionFollow up:Please obtain bilateral diagnostic mammogram and right breast US. After your studies are completedplease return to see me in the office for another exam and to review the imaging and next steps.
[2018-05-02 20:18] VITALS: BP 117/64
[2018-05-02] MEDS ORDERED: Ketorolac INJ* 60 MG/2 ML VIAL IM ONE (20:42)
[2018-05-02] MEDS ORDERED: Azithromycin TAB* 250 MG PO ONE (20:43)
--- NOTE | 2018-05-02 20:48 | UC ---
Headache HPI - HPI Summary HPI Summary: Has had off and on headaches at the vertex for the past 2 weeks, with some relief with relpax. Off work on 04/27, improved until yesterday, but has had headache and malaise for the past 2 days without relief with relpax, ibuprofen 400mg or 2 doses of acetaminophen, and 1/2 lorazepam Typically gets 0 to 2 migraines per month with good relief with relpax. In the past, non-remitting headaches have been treated with zpack with relief, assumed atypical sinusitis. Has no diplopia, fever, but has felt off balance. Pain in right ear, + cough, no sore throat. - History Of Current Complaint Chief Complaint: UCGeneralIllness Stated Complaint: HEADACHE Time Seen by Provider: 05/02/18 20:26 Hx Obtained From: Patient Hx Last Menstrual Period: April 12 Onset/Duration: Gradual Onset, Lasting Weeks Onset Of Symptoms: Still Present, Worse Since(Note Comment) - yesterday Pain Intensity: 7 Timing: Constant Character: Dull, Throbbing Location of Headache: Parietal Aggravating Factor(s): Exertion Allevating Factor(s): Rest, Medication Associated Signs And Symptoms: Positive: Dizziness, Nausea, Sinus Pressure. Negative: Vomiting, Fever, Neck Pain, Neck Stiffness, Decreased LOC - Allergies/Home Medications Allergies/Adverse Reactions: Allergies Allergy/AdvReac Type Severity Reaction Status Date / Time amoxicillin Allergy Rash Verified 05/02/18 20:20 ampicillin Allergy Diarrhea Verified 05/02/18 20:20 cefdinir Allergy Itching Verified 05/02/18 20:21 Penicillins Allergy Rash Verified 05/02/18 20:21 red dye Allergy Unknown Verified 05/02/18 20:22 Reaction Details Home Medications: Home Medications Acetaminophen [Tylenol] 05/02/18 [History] LORazepam [Ativan 0.5 MG TAB] 05/02/18 [History] PMH/Surg Hx/FS Hx/Imm Hx Neurological History: Migraine - Surgical History Surgical History: Yes Surgery Procedure, Year, and Place[place] [facility] [place]-25 YRS AGO. CERVICAL POLYPECTOMY-[facility]. 09/2014[place] [facility] [place] Family History Known Family History: Positive: Other - POS father - migraines Negative: Cardiac Disease, Hypertension - Social History Occupation: Employed Full-time Lives: With Family Alcohol Use: None Alcohol Amount: 1 PER WEEK Substance Use Type: None Smoking Status (MU): Former Smoker Type: Cigarettes Amount Used/How Often: ON OCCASION- NOT EVEN MONTHLY Have You Smoked in the Last Year: Yes When Did the Patient Quit Smoking/Using Tobacco: SOCIALLY - Immunization History Most Recent Influenza Vaccination: fall 2015 Review of Systems All Other Systems Reviewed And Are Negative: Yes Constitutional: Positive: Fatigue Skin: Positive: Negative Eyes: Positive: Negative ENT: Positive: Ear Ache Respiratory: Positive: Cough Cardiovascular: Positive: Negative Gastrointestinal: Positive: Nausea Genitourinary: Positive: Negative Motor: Positive: Negative Neurovascular: Positive: Negative Musculoskeletal: Positive: Negative Neurological: Positive: Headache Psychological: Positive: Negative Is Patient Immunocompromised?: No Physical Exam Triage Information Reviewed: Yes Appearance: Well-Appearing, Pain Distress - moderate Vital Signs: Initial Vital Signs Temp 98.4 F 05/02/18 20:09 Pulse 81 05/02/18 20:09 Resp 16 05/02/18 20:09 BP 117/64 05/02/18 20:09 Pulse Ox 97 05/02/18 20:09 Eye Exam: Other - CHERRI, normal eom, fundi normal, no photophobia. Eyes: Positive: Conjunctiva Clear ENT: Positive: Pharynx normal, TM dull - on left, with mild erythema. Neck: Positive: Supple, Nontender, No Lymphadenopathy Respiratory: Positive: Lungs clear, Normal breath sounds Cardiovascular: Positive: RRR, No Murmur Abdomen Description: Positive: Nontender, No Organomegaly, Soft Musculoskeletal Exam: Normal Neurological Exam: Normal, Other - CNII-XII normal. Normal gait. No pronator drift. Negative Romberg's. Neurological: Positive: Alert Psychological Exam: Normal Skin Exam: Normal Headache Course/Dx - Course Course Of Treatment: toradol for pain given. zpack on conjecture that pain is contributed to by atypical sinusitis. follow up with PMD - Differential Dx/Diagnosis Differential Diagnosis/HQI/PQRI: Migraine, Sinus Headache, Tension Headache, Viral Syndrome Provider Diagnosis: Sinus headache Discharge - Sign-Out/Discharge Documenting (check all that apply): Patient Departure All imaging exams completed and their final reports reviewed: No Studies - Discharge Plan Condition: Stable Disposition: HOME Prescriptions: Azithromycin TAB* [Zithromax TAB (Z-SRIRAM) 250 mg #6 tabs] 250 mg PO DAILY #4 tab Patient Education Materials: Sinusitis (ED) Referrals: Clara Gan NP [Primary Care Provider] - Additional Instructions: discussed, if pain continues following treatment with azithromycin, you will follow up with Sharon Taveras. You can take a dose of ibuprofen tomorrow morning if needed. A dose of lorazepam tonight might result in a better night's sleep. - Billing Disposition and Condition Condition: STABLE Disposition: Home
== END 2018-05-02 21:21 | disposition home or self-care (01) ==
LOC: UCEAST 20:05
DX: R51 Headache (principal); Z88.0 Allergy status to penicillin; Z88.1 Allergy status to other antibiotic agents; Z91.02 Food additives allergy status; Z87.891 Personal history of nicotine dependence
CPT/HCPCS: 96372; 99212; A9270-GY; G0463; J1885